=== PATIENT | female | born 1980 | race Caucasian/White ===

== ENCOUNTER 2017-03-15 22:30 | Emergency (ER) | payer SELFPAY ==
[~2017-03-15] VITALS: Ht 167.6 cm; Wt 61.2 kg
[2017-03-15 22:40] VITALS: BP 135/89
--- NOTE | 2017-03-16 03:55 | NUR ---
PER DR Cr NIF was performed on the pt, results were given to .
== END 2017-03-16 01:08 | disposition home or self-care (01) ==
LOC: ER 22:31
DX: R06.02 Shortness of breath (principal); R53.1 Weakness
CPT/HCPCS: 94799; 99281; A4606; Z7610 ×2; Z7502

== ENCOUNTER 2017-04-05 09:35 | Emergency (ER) | payer BC ==
[~2017-04-05] VITALS: Ht 167.6 cm; Wt 62.6 kg
--- NOTE | 2017-04-05 09:45 | NUR ---
PT PRESENTED TO THE ER WITH A C/O RLE PAIN X 5 1/2 YRS THAT IS WORSE TODAY. PT IS ALSO C/O SOB. RESP EVEN AND UNLABORED. O2 SAT IS 100%.
[2017-04-05] MEDS ORDERED: PRED5TAB48 PO (09:51)
--- NOTE | 2017-04-05 10:21 | NUR ---
CALLED RADIOLOGY RE: VENOUS DOPPLER. TECH IN RADIOLOGY.
--- NOTE | 2017-04-05 10:48 | NUR ---
VENOUS DOPPLER IN PROGRESS AT THE BEDSIDE.
--- NOTE | 2017-04-05 11:03 | NUR ---
VENOUS DOPPLER FINISHED.
[2017-04-05 11:13] VITALS: BP 134/75
== END 2017-04-05 11:14 | disposition home or self-care (01) ==
LOC: ER 09:36
DX: R06.02 Shortness of breath (principal); M54.5 Low back pain; G89.29 Other chronic pain; M51.26 Other intervertebral disc displacement, lumbar region
CPT/HCPCS: 93970-TC; A4606; Z7610

== ENCOUNTER 2017-04-14 03:09 | Emergency (ER) | payer BC ==
[~2017-04-14] VITALS: Ht 167.6 cm; Wt 62.6 kg
[~2017-04-14 03:09] MED LIST: PRED5TAB48 PO
--- NOTE | 2017-04-14 04:25 | NUR ---
PT PRESENTED TO THE ER WITH A C/O NOT BEING ABLE TO SLEEP X 3 DAYS, DIFFICULTY WALKING, AND FEELING ANXIOUS. PT AMBULATED TO BED #3 WITH A LIMP. PT IS AA&O X4. PT APPEARS FRAZZELED. PT IS CRYING WHILE EXPLAINING THAT SHE CAN'T SLEEP.
--- NOTE | 2017-04-14 05:58 | NUR ---
DR. HAQUE IS AT THE BEDSIDE SPEAKING TO THE PT.
--- NOTE | 2017-04-14 06:21 | NUR ---
Patient discharged to home in stable condition. Written and verbal after care instructions given. Patient verbalizes understanding of instruction AND RX. PT AMBULATED OUT WITH A STACATTO GAIT. PT'S VSS.
[2017-04-14 06:25] VITALS: BP 132/75
== END 2017-04-14 06:27 | disposition home or self-care (01) ==
LOC: ER 03:09
DX: F41.9 Anxiety disorder, unspecified (principal); G89.29 Other chronic pain
CPT/HCPCS: 99283; A4606; Z7610

== ENCOUNTER 2017-05-05 17:17 | Emergency (ER) | payer BC ==
[~2017-05-05] VITALS: Ht 167.6 cm; Wt 62.6 kg
--- NOTE | 2017-05-05 17:20 | NUR ---
PT CAME IN WITH C/O PROGRESSIVELY HAVING TROUBLE WALKING, SOB, FATIGUE AND DIZZINESS. SEEN BY PA. RAMÍREZ. FAMILY MEMBER AT BS. SAFETY AND COMFORT MEASURES PROVIDED. WILL MONITOR.
[2017-05-05 18:20] LABS: BASOPHILS # (AUTO) 0.1 /CMM (0.0-0.2); BASOPHILS % (AUTO) 1.5 % (0.0-2.0); EOSINOPHILS # (AUTO) 0.2 /CMM (0.0-0.7); EOSINOPHILS % (AUTO) 2.2 % (0.0-6.0); HEMATOCRIT 40 % (33-45); HEMOGLOBIN 13.4 g/dL (11.5-14.8); LYMPHOCYTES # (AUTO) 2.7 /CMM (0.8-4.8); LYMPHOCYTES % (AUTO) 36.5 % (20.0-44.0); MEAN CORPUSCULAR HEMOGLOBIN 30 PG (26.0-33.0); MEAN CORPUSCULAR HGB CONC 33 g/dl (31.0-36.0); MEAN CORPUSCULAR VOLUME 90 fL (82-100); MONOCYTES # (AUTO) 0.5 /CMM (0.1-1.30); NEUTROPHILS % (AUTO) 52.8 % (43.0-81.0); PLATELET COUNT (AUTO) 329 /CMM (150-450); RDW COEFFICIENT OF VARIATION 11.6 (11.5-15.0); RED BLOOD CELL COUNT(AUTO) 4.46 MIL/uL (4.0-5.2); WHITE BLOOD COUNT (AUTO) 7.5 K/uL (4.3-11.0)
[2017-05-05 18:27] LABS: CALCIUM, SERUM 8.8 mg/dL (8.5-10.1); CREATININE 1.2 mg/dL (0.6-1.3); POTASSIUM 3.7 mmol/L (3.5-5.1)
[2017-05-05 19:06] LABS: THYROID STIMULATING HORMONE 2.943 uIU/mL (0.358-3.74)
[2017-05-05 19:10] VITALS: BP 125/87
--- NOTE | 2017-05-05 19:10 | NUR ---
RECEIVED REPORT FROM PK CASTELLANOS FOR CONTINUE OF CARE. PT APPEARS COMFORTABLE.
== END 2017-05-05 19:58 | disposition home or self-care (01) ==
LOC: ER 17:21
DX: R53.1 Weakness (principal); R06.02 Shortness of breath; F41.9 Anxiety disorder, unspecified; G70.00 Myasthenia gravis without (acute) exacerbation; G89.29 Other chronic pain; K44.9 Diaphragmatic hernia without obstruction or gangrene; Z87.891 Personal history of nicotine dependence
CPT/HCPCS: 36415; 80048-TC; 84439-TC; 84443-TC; 84481; 85025-TC; 85652-TC; A4606; Z7610

== ENCOUNTER 2022-05-07 18:49 | Emergency (ER) | payer BC ==
[~2022-05-07] VITALS: Ht 167.6 cm; Wt 63.5 kg
--- NOTE | 2022-05-07 19:05 | NUR ---
PT SUKHDEV PERALES C/O"Had invasive stress cardiac procedure in [facility] today- afterwards started having CP- called MD was told to go to ER" PT A/OX4. TOLERATING R/A WELL; RESP EVEN AND NON LABORED. CONNECTED PT TO POX AND MONITOR. SAFETY MEASURES IN PLACE.
--- NOTE | 2022-05-07 19:27 | NUR ---
RAC #18G S/L BLOOD COLLECTED AND SENT TO LAB
--- NOTE | 2022-05-07 19:32 | NUR ---
URINE COLLECTED AND SENT TO LAB
--- NOTE | 2022-05-07 19:52 | NUR ---
PT SIGNED WAIVER FORM
--- NOTE | 2022-05-07 20:20 | NUR ---
PT RETURNED TO ER BED [address]
[2022-05-07 20:37] LABS: BASOPHILS % (AUTO) 0.4 % (0.0-2.0); EOSINOPHILS % (AUTO) 1.2 % (0.0-6.0); HEMATOCRIT 38 % (33-45); LYMPHOCYTES # (AUTO) 2.7 K/uL (0.8-4.8); LYMPHOCYTES % (AUTO) 24.9 % (20.0-44.0); MEAN CORPUSCULAR HGB CONC 34 g/dl (31.0-36.0); MEAN CORPUSCULAR VOLUME 90 fL (82-100); MONOCYTES # (AUTO) 0.7 K/uL (0.1-1.30); MONOCYTES % (AUTO) 6.6 % (2.0-12.0); NEUTROPHILS # (AUTO) 7.2 K/uL (1.8-8.9); NEUTROPHILS % (AUTO) 66.9 % (43.0-81.0); PLATELET COUNT (AUTO) 266 K/uL (150-450); RED BLOOD CELL COUNT(AUTO) 4.22 MIL/uL (4.0-5.2); WHITE BLOOD COUNT (AUTO) 10.8 K/uL (4.3-11.0)
[2022-05-07 21:09] LABS: CALCIUM, SERUM 8.8 mg/dL (8.5-10.1); CARBON DIOXIDE 22 mmol/L (21-32); CHLORIDE 109 mmol/L (98-107); CREATININE 0.8 mg/dL (0.6-1.3); POTASSIUM 3.4 mmol/L (3.5-5.1); SODIUM SERUM 139 mmol/L (136-145); UREA NITROGEN, BLOOD 11 mg/dL (7-18)
[2022-05-07 21:25] LABS: GLUCOSE 103 mg/dL (74-106)
[2022-05-07] MEDS ORDERED: IOHEXOL-350 100 ML VIAL IV ONE (21:26)
[2022-05-07] MEDS ORDERED: IV NS 0.9% 250 ML IV ONE (21:26)
[2022-05-07] MEDS ORDERED: CT SWABBABLE VALVE TRANS SET 1 EA INFUS.SET MC ONE (21:26)
[2022-05-07] MEDS ORDERED: LORAZEPAM INJ 2 MG/ML VIAL IV ONE (21:30)
[2022-05-07] MEDS ORDERED: diphenhydrAMINE HCL 50 MG/ML VIAL IV ONE (21:30)
[2022-05-07] MEDS ORDERED: diphenhydrAMINE HCL 50 MG/ML VIAL ONE (21:44)
[2022-05-07] MEDS ORDERED: LORAZEPAM INJ 2 MG/ML VIAL ONE (21:45)
--- NOTE | 2022-05-07 22:09 | NUR ---
ADMINISTERED BENEDRYL 50MG IVP. DYSTONIC REACTION NOTED; DR. STORMY NASCIMENTO AWARE. WILL CONTINUE TO MONITOR
--- NOTE | 2022-05-07 22:48 | NUR ---
PT TAKEN TO CT VIA [facility]
--- NOTE | 2022-05-08 00:40 | NUR ---
Patient discharged to home in stable condition. Written and verbal after care instructions given. Patient verbalizes understanding of instruction. PT ambulatory with a steady gait. IV removed. Catheter intact and site benign. Pressure and 4x4 applied to site. No bleeding noted.
[2022-05-08 00:41] VITALS: BP 110/65
== END 2022-05-08 00:42 | disposition home or self-care (01) ==
LOC: ER 18:53
DX: R07.89 Other chest pain (principal); G89.29 Other chronic pain; Z88.5 Allergy status to narcotic agent; Z88.6 Allergy status to analgesic agent; Z88.8 Allergy status to other drugs, medicaments and biological substances; Z79.899 Other long term (current) drug therapy
CPT/HCPCS: 99285; 70498; 96374; 93005; 71275; 85025; 80048; 84703; 36415; 84484; 71250; J2060; J1200; J7050; Q9967

== ENCOUNTER 2022-12-15 18:13 | Emergency (ER) | payer SELFPAY ==
[~2022-12-15] VITALS: Ht 167.6 cm; Wt 59.9 kg
--- NOTE | 2022-12-15 18:30 | NUR ---
PT COMES TO ER FOR WORSENING HEADACHE AND INABLITY TO RAISE RIGHT EYEBROW. PT ENDORSES HX OF NEUROLOGICAL DISORDER. 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 PT IS ABLE TO WALK BUT FEELS "STIFF" OF THE LEGS. TAKEN TO BED 12.
--- NOTE | 2022-12-15 19:29 | NUR ---
patient signed waiver for CT scan
--- NOTE | 2022-12-15 20:15 | NUR ---
PT RETURNED TO ER BED [address] FROM [address]; PT REFUSED CT. DR TATYANA NASCIMENTO AWARE
[2022-12-15 20:32] LABS: ALANINE AMINOTRANSFERASE 23 U/L (12-78); ALKALINE PHOSPHATASE 87 U/L (46-116); ASPARTATE AMINOTRANSFERASE 16 U/L (15-37); BASOPHILS % (AUTO) 0.1 % (0.0-2.0); BILIRUBIN,DIRECT 0.2 mg/dL (0.0-0.2); BILIRUBIN,TOTAL 0.6 mg/dL (0.2-1.0); CALCIUM, SERUM 9.6 mg/dL (8.5-10.1); CARBON DIOXIDE 28 mmol/L (21-32); CHLORIDE 103 mmol/L (98-107); CREATININE 0.7 mg/dL (0.6-1.3); EOSINOPHILS % (AUTO) 0.4 % (0.0-6.0); GLUCOSE 103 mg/dL (74-106); HEMATOCRIT 41 % (33-45); HEMOGLOBIN 13.7 g/dL (11.5-14.8); LYMPHOCYTES # (AUTO) 1.7 K/uL (0.8-4.8); LYMPHOCYTES % (AUTO) 11.9 % (20.0-44.0); MEAN CORPUSCULAR HGB CONC 33 g/dl (31.0-36.0); MEAN CORPUSCULAR VOLUME 89 fL (82-100); MONOCYTES # (AUTO) 0.9 K/uL (0.1-1.30); MONOCYTES % (AUTO) 6.4 % (2.0-12.0); NEUTROPHILS # (AUTO) 11.4 K/uL (1.8-8.9); NEUTROPHILS % (AUTO) 81.2 % (43.0-81.0); PLATELET COUNT (AUTO) 275 K/uL (150-450); POTASSIUM 3.6 mmol/L (3.5-5.1); RED BLOOD CELL COUNT(AUTO) 4.61 MIL/uL (4.0-5.2); SODIUM SERUM 138 mmol/L (136-145); TOTAL PROTEIN, SERUM 7.7 g/dL (6.4-8.2); UREA NITROGEN, BLOOD 11 mg/dL (7-18)
[2022-12-15 22:19] VITALS: BP 134/76
== END 2022-12-15 22:20 | disposition home or self-care (01) ==
LOC: ER 18:15
DX: R20.2 Paresthesia of skin (principal); M62.81 Muscle weakness (generalized); G89.29 Other chronic pain; Z88.8 Allergy status to other drugs, medicaments and biological substances
CPT/HCPCS: 36415; 80048-TC; 80076-TC; 82962-TC; 84484-TC; 85025-TC; 85378-TC

== ENCOUNTER 2025-05-20 20:50 | Emergency (ER) | payer BC ==
[~2025-05-20] VITALS: Ht 167.6 cm; Wt 67.1 kg
[2025-05-20 22:18] LABS: PLATELET COUNT (AUTO) 286 K/uL (150-450); RED BLOOD CELL COUNT(AUTO) 4.21 MIL/uL (4.0-5.2); RED CELL DISTRIBUTION WIDTH 12.6 % (11.5-15.0); WHITE BLOOD COUNT (AUTO) 11.8 K/uL (4.3-11.0)
[2025-05-20 22:19] LABS: CALCIUM, SERUM 9.0 mg/dL (8.5-10.1); CREATININE 0.8 mg/dL (0.6-1.3); SODIUM SERUM 139.0 mmol/L (136-145); UREA NITROGEN, BLOOD 10.0 mg/dL (7-18)
[2025-05-20 22:22] LABS: APPEARANCE,URINE CLEAR (CLEAR); BLOOD, URINE 1+ Ery/uL (NEGATIVE); LEUKOCYTE ESTERASE ,URINE NEGATIVE (NEGATIVE); NITRITE, URINE NEGATIVE (NEGATIVE); UGLUCOSE NEGATIVE (NEGATIVE)
[2025-05-20 22:53] LABS: ADD URINE CULTURE YES; SQUAMOUS EPITHELIAL CELL,UR Few /HPF (None Seen)
[2025-05-21 01:03] LABS: PHOSPHORUS 3.6 mg/dL (2.5-4.9)
[2025-05-21] MEDS: IV NS 0.9% 1,000 ML BAG IV ONE (01:35)
[2025-05-21 02:05] LABS: CALCIUM, SERUM 8.8 mg/dL (8.5-10.1); CREATININE 0.5 mg/dL (0.6-1.3); SODIUM SERUM 139.0 mmol/L (136-145); UREA NITROGEN, BLOOD 9.0 mg/dL (7-18)
[2025-05-21 02:07] LABS: PHOSPHORUS 4.0 mg/dL (2.5-4.9)
[2025-05-21 03:05] VITALS: BP 122/80; TEMP 98.4; O2SAT 99
== END 2025-05-21 03:05 | disposition home or self-care (01) ==
LOC: ER 20:52
DX: M62.89 Other specified disorders of muscle (principal); R53.1 Weakness; G89.29 Other chronic pain; Z79.52 Long term (current) use of systemic steroids; Z88.5 Allergy status to narcotic agent; Z87.39 Personal history of other diseases of the musculoskeletal system and connective tissue; Z86.69 Personal history of other diseases of the nervous system and sense organs; Z88.8 Allergy status to other drugs, medicaments and biological substances
CPT/HCPCS: 99283; 85025; 80048 ×2; 87086; 83735 ×2; 84100 ×2; 81001; 36415 ×2; 96360; J7030

== ENCOUNTER 2025-06-12 09:54 | Emergency (ER) | payer BC ==
[~2025-06-12] VITALS: Ht 167.6 cm; Wt 70.8 kg
[2025-06-12 10:29] LABS: PLATELET COUNT (AUTO) 278 K/uL (150-450); RED BLOOD CELL COUNT(AUTO) 4.43 MIL/uL (4.0-5.2); RED CELL DISTRIBUTION WIDTH 12.6 % (11.5-15.0); WHITE BLOOD COUNT (AUTO) 7.1 K/uL (4.3-11.0)
[2025-06-12] MEDS: IV NS 0.9% 1,000 ML BAG IV ONE (10:37)
[2025-06-12 10:40] LABS: CALCIUM, SERUM 9.2 mg/dL (8.5-10.1); CREATININE 0.8 mg/dL (0.6-1.3); SODIUM SERUM 135.0 mmol/L (136-145); UREA NITROGEN, BLOOD 10.0 mg/dL (7-18)
[2025-06-12] MEDS ORDERED: IV NS 0.9% 250 ML IV ONE (10:44)
[2025-06-12] MEDS ORDERED: CT SWABBABLE VALVE TRANS SET 1 EA INFUS.SET MC ONE (10:44)
[2025-06-12] MEDS ORDERED: IOHEXOL-350 100 ML VIAL IV ONE (10:44)
[2025-06-12 10:48] LABS: APPEARANCE,URINE CLEAR (CLEAR); BLOOD, URINE Small Ery/uL (NEGATIVE); LEUKOCYTE ESTERASE ,URINE Negative (NEGATIVE); UGLUCOSE Negative (NEGATIVE)
[2025-06-12 10:51] LABS: NITRITE, URINE NEGATIVE (NEGATIVE)
[2025-06-12 10:55] LABS: ADD URINE CULTURE NO; SQUAMOUS EPITHELIAL CELL,UR Few /HPF (None Seen)
[2025-06-12 10:58] LABS: INR 1.0 (0.91-1.10)
[2025-06-12 13:23] VITALS: BP 138/78; TEMP 98.1; O2SAT 99
== END 2025-06-12 13:23 | disposition home or self-care (01) ==
LOC: ER 09:56
DX: M62.81 Muscle weakness (generalized) (principal); R20.2 Paresthesia of skin; R51.9 Headache, unspecified; E06.3 Autoimmune thyroiditis; G89.29 Other chronic pain; Z79.52 Long term (current) use of systemic steroids; Z88.5 Allergy status to narcotic agent
CPT/HCPCS: 99285; 70498; 93005; 70496; 85025; 80048; 82550; 81001; 36415; 85730; 82962; 70450; J7030; J7050; Q9967